=== PATIENT | male | born 1955 | race Two or more races ===

== ENCOUNTER 2022-06-01 15:45 | Emergency (ER) | payer MEDICARE ==
[~2022-06-01 15:45] MED LIST: Aspirin 81 MG Tab.Chew PO ONE; Ondansetron 4 MG/2 ML SDV IVPUSH ONE; Promethazine 25 MG/ML SDV IM ONE; Sodium Chloride 0.9% 250 ML IV ONE
[2022-06-01] MEDS ORDERED: Iopamidol 755 Mg/ML 100 ML Bottle IV ONE (15:46)
== END 2022-06-01 19:10 | disposition home or self-care (01) ==
LOC: MW.ED 15:45
DX: R11.2 Nausea with vomiting, unspecified (principal)
CPT/HCPCS: 74178; 96372; 96374; 99284; A9270; J2405; J2550; J7050; Q9967

== ENCOUNTER 2022-06-10 17:10 | Inpatient (IN) | payer MEDICARE ==
[2022-06-10] MEDS ORDERED: Sodium Chloride 0.9% 1,000 ML IV ONE ×2 (19:12→22:04)
[2022-06-10 19:36] LABS: BLOOD UREA NITROGEN,BUN 12 mg/dL (7.0-18.0); CARBON DIOXIDE,CO2 26.5 mmol/L (21.0-32.0); CHLORIDE,CL 98 mmol/L (98-107); GLUCOSE RANDOM 163 mg/dL (74-106); LIPASE 207 U/L (73-393); POTASSIUM,K 3.8 mmol/L (3.5-5.1); SODIUM,NA 136 mmol/L (136-148)
[2022-06-10 19:39] LABS: ESTIMATED GFR 61 mL/min (>60)
[2022-06-10] MEDS ORDERED: Piperacillin/Tazobactam 3.375 GM in Sodium Chloride 0.9% 50 ML IV ONE (19:58)
[2022-06-10] MEDS ORDERED: VANCOmycin 1.5 GM/300 ML 1.5 GM in Premix Bag 1 BAG IV ONE (20:45)
[2022-06-10] MEDS ORDERED: Iopamidol 755 Mg/ML 100 ML Bottle IVPUSH ONE (20:50)
[2022-06-11] MEDS ORDERED: Lactated Ringers 1,000 ML IV ONE
[2022-06-11] MEDS ORDERED: Enoxaparin 30 MG/0.3 ML Syringe SUBCUT ONE (01:00)
[2022-06-11] MEDS ORDERED: Enoxaparin 30 MG/0.3 ML Syringe ONE (01:02)
[2022-06-11] MEDS ORDERED: Piperacillin/Tazobactam 3.375 GM in Sodium Chloride 0.9% 100 ML IV ONE ×3 (04:10→20:00)
[2022-06-11] MEDS ORDERED: VANCOmycin 1.25 GM/250 ML 250 ML IV ONE ×2 (10:05→22:55)
[2022-06-12] MEDS ORDERED: Piperacillin/Tazobactam 3.375 GM in Sodium Chloride 0.9% 100 ML IV ONE (03:55)
[2022-06-12] MEDS ORDERED: Lactated Ringers 1,000 ML IV ONE (06:45)
[2022-06-12] MEDS ORDERED: VANCOmycin 1.25 GM/250 ML 250 ML IV ONE (10:00)
[2022-06-12] MEDS ORDERED: Enoxaparin 30 MG/0.3 ML Syringe SUBCUT ONE (23:05)
[2022-06-13] MEDS ORDERED: Sodium Chloride 0.9% 100 ML IV ONE (04:05)
== END 2022-06-13 11:45 | disposition home or self-care (01) | DRG 862 ==
LOC: MW.ED 17:10 → MW.ZCENSUS 22:05 → MW.ED 23:00
PROVIDERS: ADMIT Student in an Organized Health Care Education/Training Program; ATTEND Student in an Organized Health Care Education/Training Program
DX: T81.44XA Sepsis following a procedure, initial encounter (principal); A41.9 Sepsis, unspecified organism; N41.9 Inflammatory disease of prostate, unspecified; Z20.822 Contact with and (suspected) exposure to COVID-19; I10 Essential (primary) hypertension; E78.5 Hyperlipidemia, unspecified
CPT/HCPCS: 36415; 74177; 74177-26; 80053; 81001; 83605; 83690; 85025; 87040; 96361; 96365; 96367; 99221; 99232; 99238; 99284; 99284-25; A9270-GY; J1650; J2543; J3370; J7030; J7120; Q9967; U0002

== ENCOUNTER 2023-09-11 12:23 | Emergency (ER) | payer MEDICARE, SELFPAY | END 2023-09-11 12:57 | disposition left against medical advice (07) | LOC: MW.ED 12:23 | DX: Z76.0 Encounter for issue of repeat prescription (principal) | CPT/HCPCS: 93010; 99281; 99283 ==

== ENCOUNTER 2025-01-27 11:53 | Emergency (ER) | payer MEDICARE, OTHER ==
[2025-01-27] MEDS: Lidocaine 4% Patch TOP PRN (14:04)
== END 2025-01-27 14:09 | disposition home or self-care (01) ==
LOC: MW.ED 11:53
DX: S43.402A Unspecified sprain of left shoulder joint, initial encounter (principal); M79.602 Pain in left arm; I10 Essential (primary) hypertension; Z79.899 Other long term (current) drug therapy; W01.0XXA Fall on same level from slipping, tripping and stumbling without subsequent striking against object, initial encounter
CPT/HCPCS: 71045; 73030; 99283; A9270